=== PATIENT | female | born 1970 | race Caucasian/White ===

== ENCOUNTER → 2017-04-22 | Outpatient (CLI) | payer MEDICARE, OTHER ==
[2017-04-22 11:45] VITALS: BP 135/87; PULSE 85; RESP 16; TEMP 97.7; BMI 39.5
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
== END | disposition home or self-care (01) ==
LOC: BARWHC3 11:22
PROVIDERS: ATTEND Surgery
DX: E66.01 Morbid (severe) obesity due to excess calories (principal); G89.29 Other chronic pain; K21.9 Gastro-esophageal reflux disease without esophagitis; M19.90 Unspecified osteoarthritis, unspecified site; G47.30 Sleep apnea, unspecified; Z99.89 Dependence on other enabling machines and devices; Z96.641 Presence of right artificial hip joint; Z68.35 Body mass index [BMI] 35.0-35.9, adult; Z87.828 Personal history of other (healed) physical injury and trauma; Z98.890 Other specified postprocedural states
CPT/HCPCS: 99201

== ENCOUNTER → 2017-04-30 | Day surgery (SDC) | payer MEDICARE, OTHER ==
[2017-04-25 10:50] VITALS: BMI 40.0
[~2017-04-30] MED LIST: LACTATED RINGERS 1,000 ML IV SCH; LIDOCAINE 1% 20 ML VIAL (10MG/ML) FOR IV START INTRADERMA ONE; LIDOCAINE 1% 20 ML VIAL (10MG/ML) FOR IV START INTRADERMA PRN; LIDOCAINE 1% INJ 10MG/ML (20 ML MDV) ONE; PROPOFOL 10 MG/ML 20 ML VIAL IV ONE
[2017-04-30 11:14] VITALS: RESP 16; TEMP 97.5
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
--- NOTE | 2017-04-30 11:43 | P.PCN ---
Date of Procedure: 04/30/17 Procedure(s) Performed: Preoperative Dx: GERD Postoperative Dx: Gastritis Procedure: EGD with Bx Anesthesia: Sedation Endoscopist: Dr. Bang Specimens: Antrum and body Endoscopic Procedure: The patient was on the endoscopy table in the left decubitus position. The Olympus gastroscope was inserted into the oropharynx and passed under direct visualization to the region of the third portion of the duodenum. From that point the scope was slowly withdrawn inspecting all surfaces carefully. There were no neoplastic inflammatory or polypoid lesions throughout the duodenum. The pylorus was widely patent. The stomach was carefully inspected. There was diffuse gastritis present. A biopsy of the antrum and also of the body of the stomach took place. Retroflexion revealed a normal hiatus. The esophagus was then carefully examined. There were no neoplastic inflammatory or polypoid lesions throughout the visualized esophagus. The patient was then taken to the recovery room in stable condition per anesthesia guidelines. Recommendations: Await biopsy results. Begin omeprazole once daily. Follow-up in the bariatric clinic 2-3 weeks.
[2017-04-30 12:12] VITALS: BP 119/73; PULSE 70
== END ==
LOC: ORWHC2ENDO 10:41
PROVIDERS: ATTEND Surgery
DX: K29.50 Unspecified chronic gastritis without bleeding (principal); B96.81 Helicobacter pylori [H. pylori] as the cause of diseases classified elsewhere; K21.9 Gastro-esophageal reflux disease without esophagitis; G47.33 Obstructive sleep apnea (adult) (pediatric); Z99.89 Dependence on other enabling machines and devices; E66.01 Morbid (severe) obesity due to excess calories; Z68.41 Body mass index [BMI] 40.0-44.9, adult; Z79.899 Other long term (current) drug therapy; Z88.5 Allergy status to narcotic agent
CPT/HCPCS: 88305; 88342; 43239; J2001; J2704

== ENCOUNTER → 2017-05-06 | Outpatient (CLI) | payer MEDICARE, OTHER ==
[2017-05-06 15:21] VITALS: BP 141/92; PULSE 85; RESP 16; TEMP 98.1; BMI 39.9
--- NOTE | 2017-05-06 16:38 | P.BASOAP ---
Subjective Progress Note Date: 05/06/17 Principal diagnosis: Morbid obesity Patient returns after recent upper endoscopy. EGD showed gastritis. Unfortunately biopsies showed H. pylori positive results. No additional changes to the recent history and physical. Objective - Vital Signs Vital signs: Vital Signs Temp 98.1 F 05/06/17 15:18 Pulse 85 05/06/17 15:18 Resp 16 05/06/17 15:18 BP 141/92 05/06/17 15:18 Pulse Ox Intake & Output 05/05/17 05/06/17 05/06/17 18:59 06:59 18:59 Weight 127.913 kg - Exam Abdomen: Soft, nontender, nondistended Assessment/Plan (1) Severe obesity (BMI 35.0-35.9 with comorbidity) Narrative/Plan: Will start antibiotics for H. pylori. We'll plan follow-up urea breath test in 4-6 weeks following treatment. Hopefully we'll schedule elective sleeve gastrectomy following that. Plan: Date: 05/06/17 Initial Weight: 126.751 kg Initial BMI: 39.5 Current Weight: 127.913 kg Current BMI: 39.9 Type of Surgery: Total Volume in Band: Previous Volume: Volume Removed: Volume Added: Band Size:
== END | disposition home or self-care (01) ==
LOC: BARWHC3 15:00
PROVIDERS: ATTEND Surgery
DX: E66.01 Morbid (severe) obesity due to excess calories (principal); Z68.39 Body mass index [BMI] 39.0-39.9, adult
CPT/HCPCS: 99211

== ENCOUNTER → 2017-05-19 | Outpatient (CLI) | payer MEDICARE, OTHER ==
[2017-05-19 11:43] VITALS: BMI 39.5
== END ==
LOC: BARWHC3 09:03
PROVIDERS: ATTEND Surgery
DX: E66.01 Morbid (severe) obesity due to excess calories (principal); Z68.39 Body mass index [BMI] 39.0-39.9, adult; Z71.3 Dietary counseling and surveillance
CPT/HCPCS: 97804

== ENCOUNTER → 2017-05-28 | Outpatient (CLI) | payer MEDICARE, OTHER ==
[2017-05-28 12:44] LABS: ALT 53 U/L (9-52); AST 38 U/L (14-36); Albumin 4.5 g/dL (3.5-5.0); Alkaline Phosphatase 104 U/L (38-126); Anion Gap 14 mmol/L; Blood Urea Nitrogen 14 mg/dL (7-17); Calcium 10.1 mg/dL (8.4-10.2); Carbon Dioxide 25 mmol/L (22-30); Chloride 104 mmol/L (98-107); Glucose 98 mg/dL (74-99); Potassium 4.6 mmol/L (3.5-5.1); Sodium 143 mmol/L (137-145); Total Bilirubin 0.5 mg/dL (0.2-1.3); Total Protein 7.8 g/dL (6.3-8.2)
[2017-05-28 13:08] LABS: Basophils % (A) 0 %; Eosinophils # (A) 0.1 k/uL (0-0.7); Eosinophils % (A) 1 %; HCT 43.7 % (34.0-46.0); HGB 13.7 gm/dL (11.4-16.0); Lymphocytes # (A) 1.9 k/uL (1.0-4.8); Lymphocytes % (A) 24 %; MCH 27.5 pg (25.0-35.0); MCHC 31.3 g/dL (31.0-37.0); MCV 87.6 fL (80.0-100.0); Mean Platelet Volume 7.8; Monocytes # (A) 0.3 k/uL (0-1.0); Monocytes % (A) 4 %; Neutrophils # (A) 5.5 k/uL (1.3-7.7); Neutrophils % (A) 70 %; Platelet Count 424 k/uL (150-450); RBC 4.99 m/uL (3.80-5.40); WBC 7.8 k/uL (3.8-10.6)
== END | disposition home or self-care (01) ==
LOC: LABPAT 11:21
PROVIDERS: ATTEND Surgery
DX: Z01.812 Encounter for preprocedural laboratory examination (principal)
CPT/HCPCS: 36415; 80053; 85025

== ENCOUNTER 2017-05-30 08:19 | Inpatient (IN) | payer MEDICARE, OTHER ==
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
[2017-05-30] MEDS ORDERED: LACTATED RINGERS 1,000 ML IV ONE ×3 (10:23→12:47)
[2017-05-30] MEDS ORDERED: ONDANSETRON 4 MG/2 ML VIAL IVP ONE (10:23)
[2017-05-30] MEDS ORDERED: DEXAMETHASONE SOD PHOSPHATE 10 MG/ML 1 ML VIAL IV ONE (10:24)
[2017-05-30] MEDS ORDERED: SCOPOLAMINE 1.5MG/72HR PATCH TRANSDERM ONE (10:24)
[2017-05-30] MEDS ORDERED: ENOXAPARIN 40 MG/0.4 ML SYRINGE SQ STA (11:03)
[2017-05-30] MEDS ORDERED: PROPOFOL 10 MG/ML 20 ML VIAL IV ONE (11:28)
[2017-05-30] MEDS ORDERED: NEOSTIGMINE 1 MG/ML 10 ML VIAL ONE (11:28)
[2017-05-30] MEDS ORDERED: MIDAZOLAM 2 MG/2 ML VIAL ONE (11:28)
[2017-05-30] MEDS ORDERED: ROCURONIUM BROMIDE 10 MG/ML 10 ML VIAL IV ONE (11:28)
[2017-05-30] MEDS ORDERED: SUCCINYLCHOLINE CHLORIDE VIAL 200 MG/10 ML VIAL IV ONE (11:28)
[2017-05-30] MEDS ORDERED: fentaNYL (PF) 50 MCG/ML 2 ML AMP ONE (11:28)
[2017-05-30] MEDS ORDERED: GLYCOPYRROLATE 0.2 MG/ML 2 ML VIAL ONE (11:28)
[2017-05-30] MEDS ORDERED: LIDOCAINE 1% INJ 10MG/ML (20 ML MDV) ONE (11:28)
[2017-05-30] MEDS ORDERED: BUPIVACAINE (PF) 0.25% 30 ML VIAL SQ ONE ×2 (11:56)
[2017-05-30] MEDS ORDERED: WATER IRRIGATION ONE ×2 (12:34)
[2017-05-30] MEDS ORDERED: METHYLENE BLUE IRRIGATION ONE ×2 (12:34)
[2017-05-30] MEDS ORDERED: DEXTROSE 5% IRRIGATION ONE ×2 (12:34)
[2017-05-30] MEDS ORDERED: diphenhydrAMINE 50 MG/ML 1 ML VIAL IVP PRN (13:35)
[2017-05-30] MEDS ORDERED: NALOXONE 0.4 MG/ML 1 ML VIAL IV PRN (13:35)
[2017-05-30] MEDS ORDERED: ONDANSETRON 4 MG/2 ML VIAL IVP PRN (13:35)
[2017-05-30] MEDS ORDERED: ACETAMINOPHEN IV (For NPO) 1,000 MG in EMPTY BAG 1 BAG IVPB ONE (13:35)
--- NOTE | 2017-05-30 13:40 | P.OP ---
Date of Procedure: 05/30/17 Procedure(s) Performed: PREOPERATIVE DIAGNOSIS: Morbid obesity, chronic back pain, GERD, sleep apnea POSTOPERATIVE DIAGNOSIS: Same PROCEDURE: Laparoscopic sleeve gastrectomy SURGEON: Merritt EBL: Minimal ANESTHESIA: General COMPLICATIONS: None OPERATIVE PROCEDURE: Patient was placed in the operating table in the supine position. She was placed under general anesthesia at that time. The abdomen was prepped and draped in sterile fashion after the patient was placed in lithotomy. A 5 mm optical trocar was used to enter the abdominal cavity in the left upper quadrant. Insufflation took place to 15 millimeters mercury. An additional right subxiphoid 5 mm trocar was then placed under direct visualization and then removed. 2 additional 5 mm trochars were placed in the right upper quadrant and left upper quadrant under direct visualization and a 15 mm trocar in the supraumbilical location. At the umbilicus itself there was a hernia present with a fascial defect approximately 3 cm in size. This contained omental fat. The liver was retracted using a medium Arsalan liver retractor through the right subxiphoid trocar site. The hiatus was inspected. The patient had no visible hiatal hernia At that point I moved to the mid aspect of the greater curvature the stomach. The short gastric vasculature was divided using a LigaSure device proximally. I then switched and divided the short gastrics distally to a 3-4 cm from the pylorus. The dissection took place up to the left diaphragmatic crura at that point. The posterior short gastrics were likewise divided using the LigaSure device. Once the stomach was fully mobilized the blunt tipped 40-Chile[place] bougie dilator was advanced into the stomach and advanced all the way to the prepyloric location. A black echelon 60 stapler was utilized and fired tangentially across the antrum taking care to avoid narrowing at the incisura angularis. Subsequent firings of the stapler took place. A total of 5 green echelon 60 staplers with seam guard took place proximally staying on the outer edge of our dilator. The oral gastric tube was reinserted. The stomach was insufflated with approximately 100 mL of methylene blue. No evidence of leak or obstruction was seen. The distal aspect of the sleeve was then reapproximated to the gastrosplenic and gastrocolic ligament using a short running 2-0 strata fix suture. Tisseel fibrin glue was used along the entire length of the staple line. This was done to prevent kinking or twisting of the sleeve. The stomach remnant was removed from the 15 mm trocar site without difficulty. The fascia at the 15 more site was closed using interrupted 0 Vicryl sutures with the laparoscopic suture passer and Ion Elliot technique. The insufflation was evacuated. The skin at all 5 incisions were closed using 4-0 Monocryl sutures. Steri-Strips and sterile dressings were then applied. DISPOSITION: Stable to recovery room
[2017-05-30] MEDS: ALBUTEROL NEBULIZED 2.5 MG/3 ML INHALATION SCH ×2 (16:35→21:36)
[2017-05-30 17:17] VITALS: BMI 41.2
[2017-05-30] MEDS: 0.9% NACL WITH KCL 20 MEQ/L 1,000 ML IV SCH ×3 (18:09→20:23)
[2017-05-30] MEDS: HYOSCYAMINE ORAL DROPS 1.875 MG/15 ML BOTTLE PO PRN (18:27)
[2017-05-30] MEDS: SIMETHICONE 40 MG/0.6 ML DROPS 2,000 MG/30 ML BOTTLE PO PRN (18:27)
[2017-05-30] MEDS ORDERED: KETOROLAC 30 MG/ML 1 ML VIAL IVP STA (22:24)
[2017-05-30] MEDS: ACETAMINOPHEN IV (For NPO) 1,000 MG in EMPTY BAG 1 BAG IVPB SCH (22:34)
[2017-05-31] MEDS: HYOSCYAMINE ORAL DROPS 1.875 MG/15 ML BOTTLE PO PRN ×2 (05:25→14:01)
[2017-05-31] MEDS: SIMETHICONE 40 MG/0.6 ML DROPS 2,000 MG/30 ML BOTTLE PO PRN (05:28)
[2017-05-31] MEDS: ACETAMINOPHEN IV (For NPO) 1,000 MG in EMPTY BAG 1 BAG IVPB SCH ×3 (05:29→19:33)
[2017-05-31] MEDS: 0.9% NACL WITH KCL 20 MEQ/L 1,000 ML IV SCH (05:30)
[2017-05-31 07:14] LABS: Basophils % (A) 0 %; Eosinophils % (A) 0 %; HCT 36.5 % (34.0-46.0); HGB 12.1 gm/dL (11.4-16.0); Lymphocytes # (A) 1.2 k/uL (1.0-4.8); Lymphocytes % (A) 14 %; MCH 28.6 pg (25.0-35.0); MCHC 33.1 g/dL (31.0-37.0); MCV 86.6 fL (80.0-100.0); Mean Platelet Volume 7.3; Monocytes # (A) 0.5 k/uL (0-1.0); Monocytes % (A) 5 %; Neutrophils # (A) 6.9 k/uL (1.3-7.7); Neutrophils % (A) 80 %; Platelet Count 341 k/uL (150-450); RBC 4.22 m/uL (3.80-5.40); RDW 13.6 % (11.5-15.5); WBC 8.6 k/uL (3.8-10.6)
[2017-05-31 07:27] LABS: Anion Gap 13 mmol/L; Blood Urea Nitrogen 13 mg/dL (7-17); Calcium 9.1 mg/dL (8.4-10.2); Carbon Dioxide 21 mmol/L (22-30); Chloride 108 mmol/L (98-107); Magnesium 1.8 mg/dL (1.6-2.3); Phosphorus 4.3 mg/dL (2.5-4.5); Potassium 4.6 mmol/L (3.5-5.1); Sodium 142 mmol/L (137-145)
--- NOTE | 2017-05-31 08:47 | FL ---
EXAMINATION TYPE: FL UGI DATE OF EXAM ORDERED: 05/31/2017 8:41 AM HISTORY: Status post gastric sleeve procedure. COMPARISON: None. FINDINGS: The patient drank contrast with ease. There is prompt egress of contrast from the esophagu s into the stomach. There is no evidence of extravasation. The ligament of Treitz is in the normal po sition. No significant free air is seen. IMPRESSION: STATUS POST GASTRIC SLEEVE PROCEDURE.
[2017-05-31] MEDS: KETOROLAC 30 MG/ML 1 ML VIAL IVP SCH ×3 (08:59→17:49)
[2017-05-31] MEDS: ENOXAPARIN 40 MG/0.4 ML SYRINGE SQ SCH (09:02)
[2017-05-31] MEDS: ALBUTEROL NEBULIZED 2.5 MG/3 ML INHALATION SCH ×4 (09:15→19:42)
[2017-05-31] MEDS ORDERED: oxyCODONE-APAP 5-325MG 1 EACH TAB PO PRN (09:24)
--- NOTE | 2017-05-31 09:26 | P.PN ---
Subjective Progress Note Date: 05/31/17 Principal diagnosis: Morbid obesity Patient doing well today after her sleeve gastrectomy yesterday. Mild upper abdominal crampy pain. Upper GI shows no evidence of leak or obstruction. Morning labs show a white blood cell count that is normal. She is ambulating. Objective - Vital Signs Vital signs: Vital Signs Temp 99.4 F 05/31/17 07:00 Pulse 56 L 05/31/17 09:24 Resp 18 05/31/17 07:00 BP 136/72 05/31/17 07:00 Pulse Ox 94 L 05/31/17 09:24 Intake & Output 05/30/17 05/31/17 05/31/17 18:59 06:59 18:59 Intake Total 1651 Output Total 10 Balance 1641 Weight 134 kg 134 kg Intake: IV 1651 Oral 0 Output: Estimated Blood Loss 10 Other: Voiding Method Toilet Toilet Toilet # Voids 1 - Exam Abdomen: Soft, nondistended, mild incisional tenderness - Labs CBC & Chem 7: 05/31/17 06:47 05/31/17 06:47 Labs: Abnormal Lab Results - Last 24 Hours (Table) 05/31/17 Range/Units 06:47 Chloride 108 H (98-107) mmol/L Carbon Dioxide 21 L (22-30) mmol/L Assessment and Plan (1) Severe obesity (BMI 35.0-35.9 with comorbidity) Narrative/Plan: Begin bariatric clear liquids. Monitor intake amounts. Add Toradol and Percocet for pain control. Patient has multiple ALLERGIES to pain medicines. Current Visit: No Status: Acute Code(s): E66.01 - MORBID (SEVERE) OBESITY DUE TO EXCESS CALORIES; Z68.35 - BODY MASS INDEX (BMI) 35.0-35.9, ADULT SNOMED Code(s): 06467295383727
[2017-05-31] MEDS: PANTOPRAZOLE 40 MG/10 ML VIAL IV SCH (09:57)
[2017-05-31] MEDS: 1: MVI, ADULT NO.4 WITH VIT K 10 ML, THIAMINE 100 MG, FOLIC ACID 1 MG, POTASSIUM CHLORID IV SCH ×12 (12:35→23:13)
[2017-05-31] MEDS ORDERED: CYCLOBENZAPRINE 10 MG TAB PO PRN (16:40)
--- NOTE | 2017-05-31 18:18 | P.CONS ---
History of Present Illness - Reason for Consult Recommendations regarding antihypertensive medications - History of Present Illness [id number] [place] female admitted for rescue gastrectomy patient successfully underwent surgery patient denied any fever, chest, nausea, vomiting , abdominal pain patient takes clonidine for hot flashes which will be resumed. Review of Systems REVIEW OF SYSTEMS: CONSTITUTIONAL: No fever, no malaise, no fatigue. HEENT: No recent visual problems or hearing problems. Denied any sore throat. CARDIOVASCULAR: No chest pain, orthopnea, PND, no palpitations, no syncope. PULMONARY: No shortness of breath, no cough, no hemoptysis. GASTROINTESTINAL: No diarrhea, no nausea, no vomiting, no abdominal pain. Normoactive bowel sounds. NEUROLOGICAL: No headaches, no weakness, no numbness. HEMATOLOGICAL: Denies any bleeding or petechiae. GENITOURINARY: Denies any burning micturition, frequency, or urgency. MUSCULOSKELETAL/RHEUMATOLOGICAL: Denies any joint pain, swelling, or any muscle pain. ENDOCRINE: Denies any polyuria or polydipsia. The rest of the 14-point review of systems is negative. Past Medical History Past Medical History: Blood Disorder, Eye Disorder, Fibromyalgia, Osteoarthritis (OA), Respiratory Disorder, Skin Disorder, Sleep Apnea/CPAP/BIPAP Additional Past Medical History / Comment(s): ON CATAPRES FOR HOT FLASHES, anemia, broncitis, psoriaisis History of Any Multi-Drug Resistant Organisms: None Reported Past Surgical History: Breast Surgery, Hernia Repair, Joint Replacement Additional Past Surgical History / Comment(s): right hip replacement. breast reduction. umbilical hernia repair Past Anesthesia/Blood Transfusion Reactions: Motion Sickness, Postoperative Nausea & Vomiting (PONV) Past Psychological History: Depression Smoking Status: Never smoker Past Alcohol Use History: None Reported Past Drug Use History: None Reported - Past Family History Mother Family Medical History: COPD Father Family Medical History: COPD Medications and Allergies Home Medications Medication Instructions Recorded Confirmed Type Cyclobenzaprine [Flexeril] 10 mg PO DAILY PRN 04/17/17 05/30/17 History Omeprazole [PriLOSEC] 20 mg PO AC-BRKFST #90 cap 04/30/17 05/30/17 Rx Bisacodyl [Dulcolax] 5 mg PO DAILY PRN #10 tablet. 05/30/17 Rx Hydrocodone/Acetaminophen [[place] 1 - 2 each PO Q4HR PRN #20 tab 05/30/17 Rx 5-325] Ondansetron Odt [Zofran Odt] 4 mg PO Q8HR PRN #9 tab 05/30/17 Rx Simethicone 40 mg/0.6 ml Drops 40 mg PO PCHS PRN #30 ml 05/30/17 Rx [Mylicon Drops] cloNIDine HCL [Catapres] 0.4 mg PO HS 05/30/17 05/30/17 History Allergies Allergy/AdvReac Type Severity Reaction Status Date / Time morphine Allergy Nausea & Verified 05/30/17 15:34 Vomiting hydrocodone [From [place]] AdvReac Rash/Hives Verified 05/30/17 15:34 Physical Exam Vitals: Vital Signs Temp Pulse Pulse Resp BP Pulse Ox 05/31/17 18:00 95 05/31/17 16:12 78 05/31/17 16:02 76 05/31/17 15:00 98 F 96 18 122/71 99 05/31/17 12:18 74 05/31/17 12:05 64 05/31/17 09:31 56 L 05/31/17 09:24 56 L 94 L 05/31/17 09:23 56 L 05/31/17 07:00 99.4 F 58 L 18 136/72 99 05/31/17 01:00 93 L 05/31/17 00:00 70 16 05/30/17 23:00 98 F 70 16 140/76 94 L 05/30/17 21:46 73 05/30/17 21:36 67 93 L 05/30/17 20:00 98.4 F 72 18 153/88 93 L 05/30/17 18:30 70 123/81 99 Intake and Output 05/31/17 05/31/17 05/31/17 06:59 14:59 22:59 Intake Total 1440 Balance 1440 Intake: Intake, IV Titration 1200 Amount 0.9% NaCl with KCl 20 Meq 1200 /l 1,000 ml @ 150 mls/hr IV .Q6H40M [facility] Rx#: [id number] Oral 240 Other: Voiding Method Toilet Toilet Toilet # Voids 1 1 Weight 134 kg PHYSICAL EXAMINATION: GENERAL: The patient is alert and oriented x3, not in any acute distress. Well developed, well nourished. Obese HEENT: Pupils are round and equally reacting to light. EOMI. No scleral icterus. No conjunctival pallor. Normocephalic, atraumatic. No pharyngeal erythema. No thyromegaly. CARDIOVASCULAR: S1 and S2 present. No murmurs, rubs, or gallops. PULMONARY: Chest is clear to auscultation, no wheezing or crackles. ABDOMEN: Soft, nontender, nondistended, normoactive bowel sounds. No palpable organomegaly. Urge Site areas appear to be clean MUSCULOSKELETAL: No joint swelling or deformity. EXTREMITIES: No cyanosis, clubbing, or pedal edema. NEUROLOGICAL: Gross neurological examination did not reveal any focal deficits. SKIN: No rashes. Results CBC & Chem 7: 05/31/17 06:47 05/31/17 06:47 Labs: Abnormal Lab Results - Last 24 Hours (Table) 05/31/17 Range/Units 06:47 Chloride 108 H (98-107) mmol/L Carbon Dioxide 21 L (22-30) mmol/L Assessment and Plan Plan: -Postoperative day one sleeve gastrectomy: Patient is postoperatively is clinically doing well no overnight events. In his well-controlled -Hot flashes: Clonidine will be resumed -Morbid obesity: Patient may benefit from sleep study as an outpatient
[2017-05-31] MEDS ORDERED: cloNIDine HCL 0.1 MG TAB PO SCH (21:00)
[2017-06-01] MEDS: KETOROLAC 30 MG/ML 1 ML VIAL IVP SCH ×3 (00:19→12:05)
[2017-06-01] MEDS: ENOXAPARIN 40 MG/0.4 ML SYRINGE SQ SCH ×2 (00:19→09:00)
[2017-06-01] MEDS: 1: MVI, ADULT NO.4 WITH VIT K 10 ML, THIAMINE 100 MG, FOLIC ACID 1 MG, POTASSIUM CHLORID IV SCH ×6 (06:01)
[2017-06-01 07:23] LABS: Basophils % (A) 0 %; Eosinophils # (A) 0.1 k/uL (0-0.7); Eosinophils % (A) 1 %; HCT 32.6 % (34.0-46.0); HGB 10.8 gm/dL (11.4-16.0); Lymphocytes # (A) 1.8 k/uL (1.0-4.8); Lymphocytes % (A) 22 %; MCH 28.7 pg (25.0-35.0); Mean Platelet Volume 7.6; Monocytes # (A) 0.4 k/uL (0-1.0); Monocytes % (A) 5 %; Neutrophils # (A) 5.5 k/uL (1.3-7.7); Neutrophils % (A) 70 %; Platelet Count 308 k/uL (150-450); RBC 3.75 m/uL (3.80-5.40); WBC 7.9 k/uL (3.8-10.6)
[2017-06-01] MEDS ORDERED: NON-FORMULARY DRUG (Omeprazole 20 MG) PO SCH (07:30)
[2017-06-01 07:38] LABS: Calcium 9.2 mg/dL (8.4-10.2); Potassium 4.6 mmol/L (3.5-5.1)
[2017-06-01] MEDS ORDERED: BISACODYL 5 MG TABLET.DR PO PRN (08:00)
[2017-06-01] MEDS: ALBUTEROL NEBULIZED 2.5 MG/3 ML INHALATION SCH ×2 (08:50→12:46)
[2017-06-01] MEDS: PANTOPRAZOLE 40 MG/10 ML VIAL IV SCH (08:59)
--- NOTE | 2017-06-01 09:41 | P.DS ---
Providers Date of admission: 05/30/17 08:19 Expected date of discharge: 06/01/17 Attending physician: Kobi Bang Consults: 05/30/17 13:35 Consult Physician Routine Consulting Provider: Seven Marie Consult Reason/Comments: Medical management Do you want consulting provider notified?: Yes Primary care physician: Laureano Velázquez - Discharge Diagnosis(es) (1) Severe obesity (BMI 35.0-35.9 with comorbidity) Patient admitted for elective sleeve gastrectomy. Patient has done well postoperatively. Her upper GI shows no evidence of leak or obstruction. Yesterday she was having some epigastric spasm pain. Today the pain has improved/resolved. White blood cell count today is normal. She is tolerating her clear liquids. She would like to go home today. We'll discharge with appropriate medications. She will see me in the office on Friday. Current Visit: No Status: Acute Plan - Discharge Summary Discharge Rx Participant: Yes New Discharge Prescriptions: New Bisacodyl [Dulcolax] 5 mg PO DAILY PRN #10 tablet. PRN Reason: Constipation Hydrocodone/Acetaminophen [[place] 5-325] 1 - 2 each PO Q4HR PRN #20 tab PRN Reason: pain Ondansetron Odt [Zofran Odt] 4 mg PO Q8HR PRN #9 tab PRN Reason: Nausea Simethicone 40 mg/0.6 ml Drops [Mylicon Drops] 40 mg PO PCHS PRN #30 ml PRN Reason: Gas No Action Cyclobenzaprine [Flexeril] 10 mg PO DAILY PRN PRN Reason: MUSCLE SPASMS Omeprazole [PriLOSEC] 20 mg PO AC-BRKFST #90 cap cloNIDine HCL [Catapres] 0.4 mg PO HS Discharge Medication List Cyclobenzaprine [Flexeril] 10 mg PO DAILY PRN 04/17/17 [History] Omeprazole [PriLOSEC] 20 mg PO AC-BRKFST #90 cap 04/30/17 [Rx] Bisacodyl [Dulcolax] 5 mg PO DAILY PRN #10 tablet. 05/30/17 [Rx] Hydrocodone/Acetaminophen [[place] 5-325] 1 - 2 each PO Q4HR PRN #20 tab 05/30/17 [Rx] Ondansetron Odt [Zofran Odt] 4 mg PO Q8HR PRN #9 tab 05/30/17 [Rx] Simethicone 40 mg/0.6 ml Drops [Mylicon Drops] 40 mg PO PCHS PRN #30 ml [Rx] cloNIDine HCL [Catapres] 0.4 mg PO HS 05/30/17 [History] Follow up Appointment(s)/Referral(s): [facility],. [NON-STAFF] - 06/03/17
[2017-06-01 16:06] VITALS: BP 122/77; PULSE 73; RESP 16; TEMP 98.1
== END 2017-06-01 15:52 | disposition home or self-care (01) | DRG 621 ==
LOC: 2ORMAIN 08:19 → 3SUR 16:25
PROVIDERS: ADMIT Surgery; ATTEND Surgery
PROC: 0DB64Z3 Excision of Stomach, Percutaneous Endoscopic Approach, Vertical (ICD-10-PCS; principal; 2017-05-30 10:15)
DX: E66.01 Morbid (severe) obesity due to excess calories (principal); G47.30 Sleep apnea, unspecified; K21.9 Gastro-esophageal reflux disease without esophagitis; M19.90 Unspecified osteoarthritis, unspecified site; G89.29 Other chronic pain; M54.9 Dorsalgia, unspecified; M79.7 Fibromyalgia; N95.1 Menopausal and female climacteric states; Z96.641 Presence of right artificial hip joint; Z88.6 Allergy status to analgesic agent; Z68.35 Body mass index [BMI] 35.0-35.9, adult; Z79.899 Other long term (current) drug therapy; Z82.5 Family history of asthma and other chronic lower respiratory diseases; Z87.19 Personal history of other diseases of the digestive system; Z79.891 Long term (current) use of opiate analgesic
CPT/HCPCS: 36415; 74240; 80048; 80051; 80053; 82310; 82565; 83735; 84100; 84520; 85025; 88307; 94640; 94760; 94762

== ENCOUNTER → 2017-06-03 | Outpatient (CLI) | payer MEDICARE, OTHER ==
[2017-06-03 15:16] VITALS: RESP 16
[2017-06-03 15:31] VITALS: BMI 38.2
--- NOTE | 2017-06-03 16:19 | P.BASOAP ---
Subjective Progress Note Date: 06/03/17 Principal diagnosis: Morbid obesity Patient doing well today. Surgery was last Friday. She did have a fever on postop day 3 but that has resolved. Good weight loss. No nausea or vomiting, no GERD, no pain. No incisional drainage. She is tolerating 60 ounces of liquids per day and a proximally 60 g of protein per day. Objective - Vital Signs Vital signs: Vital Signs Temp Pulse Resp 16 06/03/17 15:12 BP Pulse Ox Intake & Output 06/02/17 06/03/17 06/03/17 18:59 06:59 18:59 Weight 122.606 kg - Exam Abdomen: Soft, nondistended, incisions clean and dry Assessment/Plan (1) Severe obesity (BMI 35.0-35.9 with comorbidity) Narrative/Plan: Continue dietary and exercise regimen. Follow-up 2 weeks. Plan: Date: 06/03/17 Initial Weight: 126.751 kg Initial BMI: Current Weight: 122.606 kg Current BMI: 38.2 Type of Surgery: Total Volume in Band: Previous Volume: Volume Removed: Volume Added: Band Size:
== END | disposition home or self-care (01) ==
LOC: BARWHC3 14:58
PROVIDERS: ATTEND Surgery
DX: E66.01 Morbid (severe) obesity due to excess calories (principal); Z68.38 Body mass index [BMI] 38.0-38.9, adult
CPT/HCPCS: 97803; G0463; 99211

== ENCOUNTER → 2017-06-17 | Outpatient (CLI) | payer MEDICARE, OTHER ==
[2017-06-17 14:39] VITALS: BP 124/78; PULSE 84; TEMP 97.4; BMI 36.1
--- NOTE | 2017-06-17 16:18 | P.BASOAP ---
Subjective Progress Note Date: 06/17/17 Principal diagnosis: Morbid obesity Patient doing well at this time. Surgery was on 05/30. Last visit 2 weeks ago. She has had 2 episodes of heartburn. No vomiting, no fevers. Good weight loss since last visit. She has been increasing her activity levels. Walking a mile per day. Objective - Vital Signs Vital signs: Vital Signs Temp 97.4 F L 06/17/17 14:36 Pulse 84 06/17/17 14:36 Resp BP 124/78 06/17/17 14:36 Pulse Ox Intake & Output 06/16/17 06/17/17 06/17/17 18:59 06:59 18:59 Weight 115.847 kg - Exam Abdomen: Soft, nontender, nondistended, incisions clean and dry Assessment/Plan (1) Severe obesity (BMI 35.0-35.9 with comorbidity) Narrative/Plan: Continue dietary and exercise regimen. Continue antiacids. We'll see dietitian today regarding some difficulty with protein intake. Follow-up one month. Check one month labs. Plan: Date: 06/17/17 Initial Weight: 126.751 kg Initial BMI: 39.5 Current Weight: 115.847 kg Current BMI: 36.1 Type of Surgery: Total Volume in Band: Previous Volume: Volume Removed: Volume Added: Band Size:
== END | disposition home or self-care (01) ==
LOC: BARWHC3 14:17
PROVIDERS: ATTEND Surgery
DX: Z09 Encounter for follow-up examination after completed treatment for conditions other than malignant neoplasm (principal); E66.01 Morbid (severe) obesity due to excess calories; R12 Heartburn; Z68.36 Body mass index [BMI] 36.0-36.9, adult; Z79.899 Other long term (current) drug therapy; Z98.84 Bariatric surgery status
CPT/HCPCS: 97803; G0463; 99211

== ENCOUNTER 2017-09-19 09:25 | Emergency (ER) | payer MEDICARE, OTHER ==
[2017-09-19 09:51] VITALS: RESP 16
[2017-09-19] MEDS ORDERED: ONDANSETRON 4 MG/2 ML VIAL IVP STA (10:19)
[2017-09-19] MEDS ORDERED: SODIUM CHLORIDE 0.9% 1,000 ML IV STA ×2 (10:19)
--- NOTE | 2017-09-19 10:23 | ED ---
General Adult HPI - General Chief complaint: Recheck/Abnormal Lab/Rx Stated complaint: Dehydration Time Seen by Provider: 09/19/17 10:12 Source: patient Mode of arrival: ambulatory Limitations: no limitations - History of Present Illness Initial comments: This 46-year-old white female presents complaining that she feels as though she may be dehydrated. She states that she feels very weak and has decreased exertional ability. She apparently had a gastric bypass type of surgery in May 2017. Since that time she has lost 78 pounds. She states that she can only eat and/or drink so much in the day. If she tries to drink more fluids and she will vomit. She denies any abdominal pain, chest pain, shortness breath , fevers, chills, leg pain, or leg swelling. She states that she passed out once about a month and half ago and again about one week ago. She has had some long-standing anxiety but denies any anxiety reactions. She's had occasional tingling to extremities and occasional lightheadedness. She saw her primary care physician yesterday and they discussed case with Dr. Bang's staff and they relate that she should come to the ER for further hydration. She denies any other complaints or modifying factors. - Related Data Home Medications Medication Instructions Recorded Confirmed Cyclobenzaprine [Flexeril] 10 mg PO DAILY PRN 04/17/17 09/19/17 Adalimumab [Humira Pen] 40 mg SQ [id number] 09/19/17 09/19/17 Cyclobenzaprine [Flexeril] 10 mg PO DAILY PRN 09/19/17 09/19/17 cloNIDine HCL 0.3 mg PO HS 09/19/17 09/19/17 Previous Rx's Medication Instructions Recorded Omeprazole [PriLOSEC] 20 mg PO AC-BRKFST #90 cap 04/30/17 Allergies Allergy/AdvReac Type Severity Reaction Status Date / Time morphine Allergy Nausea & Verified 09/19/17 10:06 Vomiting hydrocodone [From [facility]] AdvReac Rash/Hives Verified 09/19/17 10:06 Review of Systems ROS Statement: Those systems with pertinent positive or pertinent negative responses have been documented in the HPI. ROS Other: All systems not noted in ROS Statement are negative. Past Medical History Past Medical History: Blood Disorder, Eye Disorder, Fibromyalgia, Osteoarthritis (OA), Respiratory Disorder, Skin Disorder, Sleep Apnea/CPAP/BIPAP Additional Past Medical History / Comment(s): ON CATAPRES FOR HOT FLASHES, anemia, broncitis, psoriaisis History of Any Multi-Drug Resistant Organisms: None Reported Past Surgical History: Breast Surgery, Hernia Repair, Joint Replacement Additional Past Surgical History / Comment(s): right hip replacement. breast reduction. umbilical hernia repair Past Anesthesia/Blood Transfusion Reactions: Motion Sickness, Postoperative Nausea & Vomiting (PONV) Past Psychological History: Depression Smoking Status: Never smoker - Past Family History Mother Family Medical History: COPD Father Family Medical History: COPD General Exam - General Exam Comments Initial Comments: GENERAL: The patient is well nourished and well hydrated. VITAL SIGNS: Heart rate, blood pressure, respiratory rate reviewed as recorded in nurse's notes. EYES: Pupils are round and reactive. Extraocular movements are intact. No conjunctival / lid redness or swelling. ENT: No external evidence of injury, swelling, or ecchymosis. Airway is patent. Throat is clear. NECK: Nontender. No swelling or evidence of injury. No subcutaneous emphysema. Trachea is midline. No thyroid mass. HEART: Regular rate and rhythm. Good peripheral pulses. LUNGS/CHEST: Breath sounds clear and equal bilaterally. No rales, rhonchi, or wheezes. No ecchymosis, subcutaneous emphysema, or tenderness. ABDOMEN: Abdomen soft without tenderness. No palpable masses or organomegaly. No peritoneal signs. No abdominal wall swelling or ecchymosis. EXTREMITIES: No extremity tenderness. Normal muscle tone and function. No thoracolumbar tenderness. NEUROLOGIC: Sensation is grossly intact. Cranial nerve exam reveals face is symmetrical, tongue is midline, speech is clear. SKIN: No abrasions or ecchymosis is noted. No induration or masses noted. PSYCHIATRIC: Alert and oriented. Appropriate behavior and judgment. Limitations: no limitations Course Vital Signs 09/19/17 09/19/17 09/19/17 09:45 11:36 11:38 Temperature 97.7 F Pulse Rate 70 Pulse Rate [ 60 63 Right Radial] Respiratory 16 Rate Blood Pressure 112/76 Blood Pressure [Right Arm Standing] Blood Pressure 110/70 120/79 [Right Arm] O2 Sat by Pulse 99 97 99 Oximetry 09/19/17 11:39 Temperature Pulse Rate Pulse Rate [ 62 Right Radial] Respiratory Rate Blood Pressure Blood Pressure 117/77 [Right Arm Standing] Blood Pressure [Right Arm] O2 Sat by Pulse Oximetry Medical Decision Making - Medical Decision Making The patient was seen and examined. All diagnostics were reviewed. An IV is started and she does receive ample fluid hydration as well as some Zofran intravenously. The patient did have an EKG done which shows a sinus bradycardia at a rate of 58. There is no acute ST T-wave changes identified. The UT intervals 178, QRS duration is 88, and the QTc interval is 455. The patient does receive 2 L of IV fluids and is feeling much improved on recheck. The laboratories overall fairly unremarkable. The urinalysis is equivocal for a urinary infection but she is asymptomatic so will not be treated at this time. The patient has lost a significant amount of weight in a short time period. This felt as though her symptomatology may be related to these effects of her recent bariatric surgery. Overall, is felt as though she stable for discharge and is felt as though she benefit from close follow-up with Dr. Bang. She understands and agrees and leaves in no identifiable distress. - Lab Data Result diagrams: 09/19/17 10:09 09/19/17 10:09 Lab Results 09/19/17 09/19/17 09/19/17 Range/Units 10:09 10:09 10:09 WBC 5.6 (3.8-10.6) k/uL RBC 4.86 (3.80-5.40) m/uL Hgb 14.4 (11.4-16.0) gm/dL Hct 43.2 (34.0-46.0) % MCV 88.9 (80.0-100.0) fL MCH 29.6 (25.0-35.0) pg MCHC 33.3 (31.0-37.0) g/dL RDW 15.2 (11.5-15.5) % Plt Count 311 (150-450) k/uL Neutrophils % 61 % Lymphocytes % 29 % Monocytes % 6 % Eosinophils % 2 % Basophils % 1 % Neutrophils # 3.4 (1.3-7.7) k/uL Lymphocytes # 1.6 (1.0-4.8) k/uL Monocytes # 0.3 (0-1.0) k/uL Eosinophils # 0.1 (0-0.7) k/uL Basophils # 0.0 (0-0.2) k/uL Sodium 145 (137-145) mmol/L Potassium 4.4 (3.5-5.1) mmol/L Chloride 108 H (98-107) mmol/L Carbon Dioxide 26 (22-30) mmol/L Anion Gap 11 mmol/L BUN 13 (7-17) mg/dL Creatinine 0.80 (0.52-1.04) mg/dL Est GFR (CKD-EPI)AfAm >90 (>60 ml/min/1.73 sqM) Est GFR (CKD-EPI)NonAf 88 (>60 ml/min/1.73 sqM) Glucose 86 (74-99) mg/dL Calcium 10.1 (8.4-10.2) mg/dL Phosphorus 4.1 (2.5-4.5) mg/dL Magnesium 1.9 (1.6-2.3) mg/dL Total Bilirubin 0.6 (0.2-1.3) mg/dL AST 39 H (14-36) U/L ALT 45 (9-52) U/L Alkaline Phosphatase 73 (38-126) U/L Total Protein 7.5 (6.3-8.2) g/dL Albumin 4.5 (3.5-5.0) g/dL TSH 2.340 (0.465-4.680) mIU/L Urine Color Yellow Urine Appearance Cloudy H (Clear) Urine pH 5.5 (5.0-8.0) Ur Specific [place] 1.025 (1.001-1.035) Urine Protein Trace H (Negative) Urine Glucose (UA) Negative (Negative) Urine Ketones Trace H (Negative) Urine Blood Negative (Negative) Urine Nitrite Negative (Negative) Urine Bilirubin 1+ H (Negative) Urine Urobilinogen 4.0 (<2.0) mg/dL Ur Leukocyte Esterase Small H (Negative) Urine RBC 6 H (0-5) /hpf Urine WBC 2 (0-5) /hpf Ur Squamous Epith Cells 2 (0-4) /hpf Urine Bacteria Rare H (None) /hpf Urine Mucus Many H (None) /hpf Disposition Clinical Impression: Weakness, Dehydration, History of gastric bypass, Syncope Disposition: HOME SELF-CARE Condition: Fair Instructions: Weakness (ED), Dehydration (ED), Syncope (ED) Is patient prescribed a controlled substance at d/c from ED?: No Referrals: Nonstaff,Physician [Primary Care Provider] - 1-2 days Kobi Bang MD [Medical Doctor] - As Soon As Possible Time of Disposition: 12:05
[2017-09-19 10:57] LABS: ALT 45 U/L (9-52); AST 39 U/L (14-36); Albumin 4.5 g/dL (3.5-5.0); Alkaline Phosphatase 73 U/L (38-126); Anion Gap 11 mmol/L; Blood Urea Nitrogen 13 mg/dL (7-17); Calcium 10.1 mg/dL (8.4-10.2); Carbon Dioxide 26 mmol/L (22-30); Chloride 108 mmol/L (98-107); Glucose 86 mg/dL (74-99); Magnesium 1.9 mg/dL (1.6-2.3); Phosphorus 4.1 mg/dL (2.5-4.5); Potassium 4.4 mmol/L (3.5-5.1); Sodium 145 mmol/L (137-145); Total Bilirubin 0.6 mg/dL (0.2-1.3); Total Protein 7.5 g/dL (6.3-8.2)
[2017-09-19 10:59] LABS: Basophils % (A) 1 %; Eosinophils # (A) 0.1 k/uL (0-0.7); Eosinophils % (A) 2 %; HCT 43.2 % (34.0-46.0); HGB 14.4 gm/dL (11.4-16.0); Lymphocytes # (A) 1.6 k/uL (1.0-4.8); Lymphocytes % (A) 29 %; MCH 29.6 pg (25.0-35.0); MCHC 33.3 g/dL (31.0-37.0); MCV 88.9 fL (80.0-100.0); Mean Platelet Volume 8.8; Monocytes # (A) 0.3 k/uL (0-1.0); Monocytes % (A) 6 %; Neutrophils # (A) 3.4 k/uL (1.3-7.7); Neutrophils % (A) 61 %; Platelet Count 311 k/uL (150-450); RBC 4.86 m/uL (3.80-5.40); RDW 15.2 % (11.5-15.5); WBC 5.6 k/uL (3.8-10.6)
[2017-09-19 11:13] LABS: Appearance,Urine Cloudy (Clear); Bacteria,Urine Rare /hpf; Bilirubin,Urine 1+ (Negative); Blood,Urine Negative (Negative); Color,Urine Yellow; Glucose,Urine (UA) Negative (Negative); Ketones,Urine Trace (Negative); Leukocyte Esterase,Urine Small (Negative); Mucus,Urine Many /hpf; Nitrite,Urine Negative (Negative); PH, Urine 5.5 (5.0-8.0); Protein,Urine Trace (Negative); RBC,Urine 6 /hpf (0-5); Specific Gravity,Urine 1.025 (1.001-1.035); Squamous Epithelial Cell,Urine 2 /hpf (0-4); WBC,Urine 2 /hpf (0-5)
[2017-09-19 12:25] VITALS: BP 118/76; PULSE 63; TEMP 97.6
== END 2017-09-19 12:24 | disposition home or self-care (01) ==
LOC: EC 09:25
DX: E86.0 Dehydration (principal); R53.1 Weakness; Z98.84 Bariatric surgery status; L40.9 Psoriasis, unspecified; G47.30 Sleep apnea, unspecified; Z99.89 Dependence on other enabling machines and devices; Z96.641 Presence of right artificial hip joint; Z79.899 Other long term (current) drug therapy; Z88.5 Allergy status to narcotic agent; Z53.20 Procedure and treatment not carried out because of patient's decision for unspecified reasons
CPT/HCPCS: 36415; 80053; 81001; 83735; 84100; 84443; 85025; 93005; 96360; 96361; 99284

== ENCOUNTER → 2017-11-04 | Outpatient (CLI) | payer MEDICARE, OTHER ==
[2017-11-04 16:50] VITALS: BP 128/71; PULSE 66; RESP 16; TEMP 98.2; BMI 26.8
[2017-11-04 17:25] LABS: HCT 42.3 % (34.0-46.0); HGB 13.6 gm/dL (11.4-16.0); MCHC 32.2 g/dL (31.0-37.0); MCV 93.2 fL (80.0-100.0); Mean Platelet Volume 8.3; Platelet Count 309 k/uL (150-450); RBC 4.54 m/uL (3.80-5.40); RDW 13.6 % (11.5-15.5); WBC 7.2 k/uL (3.8-10.6)
[2017-11-04 17:38] LABS: ALT 40 U/L (9-52); AST 28 U/L (14-36); Albumin 4.7 g/dL (3.5-5.0); Alkaline Phosphatase 79 U/L (38-126); Anion Gap 11 mmol/L; Blood Urea Nitrogen 14 mg/dL (7-17); Calcium 10.2 mg/dL (8.4-10.2); Carbon Dioxide 27 mmol/L (22-30); Chloride 103 mmol/L (98-107); Glucose 80 mg/dL (74-99); Potassium 4.3 mmol/L (3.5-5.1); Sodium 141 mmol/L (137-145); Total Bilirubin 0.7 mg/dL (0.2-1.3); Total Protein 7.9 g/dL (6.3-8.2)
--- NOTE | 2017-11-04 23:20 | P.BASOAP ---
Subjective Progress Note Date: 11/04/17 Principal diagnosis: Morbid obesity Patient has had poor follow-up. She has had excellent weight loss however. She admits to intermittent episodes of dysphagia. She has frothy foam-like vomiting periodically as well. Not taking her antacids daily but on a when necessary basis. She states she takes about 25-35 ounces of liquids per day. She is due for 3 month labs although she is quite overdue. Denies pain. She is happy with her progress. Objective - Vital Signs Vital signs: Vital Signs Temp 98.2 F 11/04/17 16:45 Pulse 66 11/04/17 16:45 Resp 16 11/04/17 16:45 BP 128/71 11/04/17 16:45 Pulse Ox Intake & Output 11/04/17 11/04/17 11/05/17 06:59 18:59 06:59 Weight 85.899 kg - Exam Abdomen: Soft, nontender, nondistended - Labs CBC & Chem 7: 11/04/17 16:59 11/04/17 16:59 Assessment/Plan (1) Severe obesity (BMI 35.0-35.9 with comorbidity) Narrative/Plan: Patient doing well at this time. We'll check three-month labs. We'll write a prescription for when necessary Pepcid. Follow up one month. Plan: Date: 11/04/17 Initial Weight: 126.751 kg Initial BMI: 39.5 Current Weight: 85.899 kg Current BMI: 26.8 Type of Surgery: Total Volume in Band: Previous Volume: Volume Removed: Volume Added: Band Size:
[2017-11-05 02:56] LABS: Vitamin D 25 Hydroxy 35.4 ng/mL (30.0-100.0)
== END | disposition home or self-care (01) ==
LOC: BARWHC3 14:53
PROVIDERS: ATTEND Surgery
DX: E66.01 Morbid (severe) obesity due to excess calories (principal); K90.89 Other intestinal malabsorption; E55.9 Vitamin D deficiency, unspecified; Z68.35 Body mass index [BMI] 35.0-35.9, adult
CPT/HCPCS: 84425; 80053; 82607; 83540; 85027; 82306; 36415; G0463; 97803; 99211

== ENCOUNTER → 2018-05-05 | Outpatient (CLI) | payer MEDICARE, OTHER ==
[2018-05-05 13:40] VITALS: BP 138/81; PULSE 86; RESP 16; TEMP 98; BMI 24.5
[2018-05-05 14:50] LABS: HCT 42.8 % (34.0-46.0); HGB 13.8 gm/dL (11.4-16.0); MCHC 32.1 g/dL (31.0-37.0); MCV 93.4 fL (80.0-100.0); Mean Platelet Volume 7.5; Platelet Count 335 k/uL (150-450); RBC 4.59 m/uL (3.80-5.40); RDW 12.7 % (11.5-15.5); WBC 8.3 k/uL (3.8-10.6)
--- NOTE | 2018-05-05 17:07 | P.BASOAP ---
Subjective Progress Note Date: 05/05/18 Principal diagnosis: Morbid obesity Patient doing well today. Good weight loss. She is due for one year labs at this time. Still not eating much. He has had some issues with dehydration at times. She says she struggles to remember to drink enough liquids. No significant dysphagia. No vomiting. No reflux. She is having difficulties with the taste of vitamins and is not taking her vitamins for that reason. Not taking any antiacids. Objective - Vital Signs Vital signs: Vital Signs Temp 98 F 05/05/18 13:38 Pulse 86 05/05/18 13:38 Resp 16 05/05/18 13:38 BP 138/81 05/05/18 13:38 Pulse Ox Intake & Output 05/04/18 05/05/18 05/05/18 18:59 06:59 18:59 Weight 78.557 kg - Labs CBC & Chem 7: 05/05/18 14:25 Assessment/Plan Plan: Date: 05/05/18 Initial Weight: 126.751 kg Initial BMI: 39.5 Current Weight: 78.557 kg Current BMI: 24.5 Type of Surgery: Total Volume in Band: Previous Volume: Volume Removed: Volume Added: Band Size:
[2018-05-05 18:41] LABS: Albumin 4.4 g/dL (3.80-4.90); Albumin/Globulin Ratio 1.91 (1.60-3.17); Anion Gap 7.5 mmol/L (4.00-12.00); Calcium 9.7 mg/dL (8.7-10.3); Carbon Dioxide 29.5 mmol/L (21.6-31.8); Globulin 2.3 g/dL (1.6-3.3); Potassium 4.8 mmol/L (3.5-5.5); Total Bilirubin 0.4 mg/dL (0.2-1.2); Total Protein 6.7 g/dL (6.2-8.2)
[2018-05-05 18:49] LABS: Folate, Serum 6.8 ng/mL
[2018-05-05 19:04] LABS: Vitamin D 25 Hydroxy 14.1 ng/mL (30.0-100.0)
[2018-05-06 14:52] LABS: Vitamin A 39 ug/dL (38-106)
== END | disposition home or self-care (01) ==
LOC: BARWHC3 12:48
PROVIDERS: ATTEND Surgery
DX: E66.01 Morbid (severe) obesity due to excess calories (principal); E55.9 Vitamin D deficiency, unspecified; K90.89 Other intestinal malabsorption; Z68.24 Body mass index [BMI] 24.0-24.9, adult
CPT/HCPCS: 84425; 80053; 82607; 82746; 83540; 84590; 85027; 82306; 97803; G0463; 99211